=== PATIENT | male | born 1940 | race Caucasian/White ===

== ENCOUNTER 2017-05-19 09:34 | Inpatient (IN) | payer MEDICARE, BC ==
[~2017-05-19] VITALS: Ht 172.7 cm; Wt 110.7 kg
[~2017-05-19 09:34] MED LIST: ALLOPURINOL300 MG PO; AMLODIPINE BESYL5 MG PO; ANTIVERT25 MG PO; ASPIRIN EC81 MG PO; BUPROPION XL150 MG PO; CLINDAMYCIN HC300 MG PO; CLOPIDOGREL75 MG PO; GLIMEPIRIDE4 MG PO; KEFLEX500 MG PO; LASIX80 MG PO; LISINOPRIL40 MG PO; LOPRESSOR100 MG PO; METFORMIN HCL750 MG PO; METOPROLOL SUC100 MG PO; NITROSTAT0.4 MG SL; POTASSIUM CHLO20 ME1 PO; PRILOSEC OTC20 MG PO; SIMVASTATIN20 MG PO; SPIRONOLACTONE PO; WARFARIN; WARFARIN SODIUM5 MG PO
[2017-05-19] MEDS ORDERED: METOPROLOL TAR100 MG PO (17:42)
[2017-05-19] MEDS ORDERED: DILTIAZEM ER180 M1 PO (17:44)
[2017-05-19] MEDS ORDERED: JANUVIA100 MG PO (17:44)
[2017-05-19] MEDS ORDERED: LEVEMIR FL100 UNIT/2 SUB-Q (17:45)
[2017-05-19] MEDS ORDERED: KEFLEX500 MG PO (17:46)
[2017-05-19] MEDS ORDERED: METOLAZONE2.5 MG PO (17:47)
[2017-05-19] MEDS ORDERED: NIASPAN500 MG PO (17:47)
--- NOTE | 2017-05-19 19:32 | EKG ---
[facility] [address] [facility] [place] [address] Signed Atrial fibrillation Nonspecific ST and T wave abnormality Prolonged QT Abnormal ECG When compared with ECG of 30-JAN-2016 11:12, Previous ECG has undetermined rhythm, needs review ST now depressed in Anterior leads Nonspecific T wave abnormality now evident in Lateral leads QT has lengthened Confirmed by VAIBHAV VARGAS MD ([id number]) on 05/19/2017 7:32:06 PM Electronically Signed By: VAIBHAV VARGAS MD 05/19/[id number] PATIENT NAME: LUIS HANSEN Electrocardiogram DATE OF : 44 PHYSICIAN: VAIBHAV VARGAS MD REPORT #: [id number] REPORT IS CONFIDENTIAL AND NOT TO BE RELEASED WITHOUT AUTHORIZATION
[2017-05-21] MEDS ORDERED: AMOX TR-K CLV1 EAC1 PO (11:29)
[2017-05-21] MEDS ORDERED: PSEUDOEPHEDRINE30 MG PO (11:32)
[2017-05-21] MEDS ORDERED: POTASSIUM CHLO20 ME1 PO (11:33)
[2017-05-21] MEDS ORDERED: METOLAZONE2.5 MG PO (11:34)
[2017-05-21] MEDS ORDERED: LEVEMIR100 UNIT/1 SUB-Q (11:35)
[2017-05-21] MEDS ORDERED: FLUTICASONE PRO16 GM NAS (11:35)
[2017-05-21] MEDS ORDERED: SALINE NOSE SPR45 ML NAS (11:56)
== END 2017-05-21 13:35 | disposition home or self-care (01) | DRG 683 ==
LOC: ED 09:34 → CCU 12:25 → MS 05-20 10:45
PROVIDERS: ADMIT Internal Medicine
DX: N17.9 Acute kidney failure, unspecified (principal); I50.32 Chronic diastolic (congestive) heart failure; E86.0 Dehydration; E87.6 Hypokalemia; T50.2X5A Adverse effect of carbonic-anhydrase inhibitors, benzothiadiazides and other diuretics, initial encounter; J01.41 Acute recurrent pansinusitis; I11.0 Hypertensive heart disease with heart failure; I48.2 Chronic atrial fibrillation; E11.9 Type 2 diabetes mellitus without complications; I25.10 Atherosclerotic heart disease of native coronary artery without angina pectoris; E78.5 Hyperlipidemia, unspecified; E79.0 Hyperuricemia without signs of inflammatory arthritis and tophaceous disease; F39 Unspecified mood [affective] disorder; Z79.01 Long term (current) use of anticoagulants; Z98.61 Coronary angioplasty status; Z79.82 Long term (current) use of aspirin; Z79.4 Long term (current) use of insulin; Z79.899 Other long term (current) drug therapy
CPT/HCPCS: 36415; 71045; 80048; 80053; 81001; 82010; 82570; 83735; 84300; 84484; 84540; 85025; 85610; 85730; 93005; 93010; 94667; 94668; J3480; J7030; J7040; J7050; J7060; J7120

== ENCOUNTER 2018-05-27 12:33 | Emergency (ER) | payer MEDICARE, BC ==
[~2018-05-27] VITALS: Ht 172.7 cm; Wt 107.0 kg
[~2018-05-27 12:33] MED LIST changes: +AMOX TR-K CLV1 EAC1 PO; +DILTIAZEM ER180 M1 PO; +FLUTICASONE PRO16 GM NAS; +JANUVIA100 MG PO; +LEVEMIR FL100 UNIT/2 SUB-Q; +LEVEMIR100 UNIT/1 SUB-Q; +METOLAZONE2.5 MG PO; +METOPROLOL TAR100 MG PO; +NIASPAN500 MG PO; +PSEUDOEPHEDRINE30 MG PO; +SALINE NOSE SPR45 ML NAS; +TORSEMIDE20 MG PO
[2018-05-27] MEDS ORDERED: KEFLEX500 MG PO (13:12)
== END 2018-05-27 15:44 | disposition home or self-care (01) ==
LOC: ED 12:33
DX: L03.115 Cellulitis of right lower limb (principal); I10 Essential (primary) hypertension; E78.00 Pure hypercholesterolemia, unspecified; E11.9 Type 2 diabetes mellitus without complications; Z87.891 Personal history of nicotine dependence; Z95.5 Presence of coronary angioplasty implant and graft; Z79.899 Other long term (current) drug therapy; Z79.4 Long term (current) use of insulin; Z51.81 Encounter for therapeutic drug level monitoring
CPT/HCPCS: 80053; 85025; 85610; 93971; 96374; 99284-25; J0690

== ENCOUNTER 2018-08-31 16:56 | Observation (INO) | payer MEDICARE, BC ==
[~2018-08-31] VITALS: Ht 172.7 cm; Wt 111.0 kg
[~2018-08-31 16:56] MED LIST changes: +LANTUS SOL100 UNIT/1 SUB-Q
--- NOTE | 2018-08-31 19:20 | NUR ---
SHIFT REPORT RECIEVED FROM DAYSHIFT JULIOCESAR ORDONEZ AT [facility]. PT RECENTLY ARRIVED TO FLOOR VIA STRETCHER. INITIAL VVS. FAMILY IN ROOM. THIS RN INTRODUCED SELF TO PT AND FAMILY. FAMILY GOING HOMR FOR THE EVENING. PT AWAKE, RR WNL, NO DISTRESS NOTED. PT INTERACTING JOKINGLY WITH STAFF. ORDER PACKER COMPLETING QUICK ADMIT. CALL LIGHT IN REACH. IV BOLUS INFUSING AT THIS TIME.
--- NOTE | 2018-08-31 19:45 | NUR ---
PT ADMITTED TO ROOM 120 FROM ED, NEAR 192. A/O, PLEASANT. STATES HE LIVES IN [place], WITH HIS . ABLE TO AMBULATE, IS INSTRUCTED TO USE CALL LIGHT WHEN HE NEEDS TO GET UP D/T TO POTENTIAL FOR FALLING. HE STATED HE UNDERSTOOD. REQUESTED DINNER, WILL GET HIM A SANDWICH BOX, AFTER BLOOD SUGARS ARE DONE. CALL LIGHT EXPLAINED TO HIM HE STATED UNDERSTANDING.
--- NOTE | 2018-08-31 20:15 | NUR ---
[facility]'S HOME WARFARIN DOSE. PER HOME MED REC, PT TAKES 5MG WARFARIN DAILY AND PHARMACY IS ORDERED TO START DOSING ON 09/01/18.
--- NOTE | 2018-08-31 20:35 | NUR ---
PT BS 108, REQUIRES NO SLIDING SCALE, UP TO USE BATHROOM, STEADY ON FEET, THEN TO CHAIR PER HIS REQUEST. PLANNING TO EAT SANDWICH, AND WILL HAVE CUP COFFEE. CALL LIGHT WITH IN HIS REACH AT CHAIR.
--- NOTE | 2018-08-31 20:39 | NUR ---
VITALS DONE AND CHARTED.
--- NOTE | 2018-08-31 20:56 | NUR ---
ASSESSMENT COMPLETE. BS CHECKED BY CHARLOTTE AUGUST, BS WNL. NO INSULIN PROVIDED. SCHEDULED MEDICATIONS (SEE EMAR) GIVEN BY POSTAL TRANSPORTATION CLERK. LUNCHBOX IN ROOM AT THIS TIME. PT A/OX4, RATES PAIN 05/19. DENIES NEED FOR PAIN MEDICATIONS. VS REMAIN STABLE, TELE #[address], IRREGULAR HR NOTED. PT DENIES CHEST PAIN, SOB, OR DYSPNEA. PT ALSO DENIES DIZZINESS WITH STANDING OR AMBULATION. IV FLUIDS INFUSING PER MD ORDERS, SITE WNL. PT DENIES ADDITIONAL NEEDS, CALL LIGHT IN REACH.
--- NOTE | 2018-08-31 22:45 | NUR ---
ORTHOSTATIC VS COLLECTED AND RECORDED (SEE EMAR). DISCUSSED FINDINGS WITH SHIFT SUPERINTENDENT CAUSTIC CRESYLATE. STANDING SYSTOLIC FINDINGS BELOW 100. NO NEED TO NOTIFY VARGAS WITH RESULTS PER SHIFT SUPERINTENDENT CAUSTIC CRESYLATE. PT REMAINS ASYMPTOMATIC, DENIES SOB, DIZZINESS WITH STANDING, DYSPNEA. PT NOW RESTING IN BED, CALL LIGHT IN REACH. IV FLUIDS INFUSING PER MD ORDERS, SITE WNL. BED ALARM ON FOR SAFETY.
--- NOTE | 2018-09-01 01:04 | NUR ---
VITALS AND I&OS DONE AND CHARTED. BEDSIDE TABLE AND CALL LIGHT IN REACH. BED ALARM SET.
--- NOTE | 2018-09-01 05:18 | NUR ---
ASSESSMENT COMPLETE, NO NEW CONCERNS. VSS, PT ON RA, DENIES PAIN, SOB, DYSPNEA, AND NAUSEA. SBP 99, PT ASYMPTOMATIC AND RESTING AT THAT TIME. COLLECTED MANUALLY. BOAT GARNISHER AWARE, AGREES NOTIFYING DR VARGAS NOT NECESSARY. PT STABLE. PT SBA AND STOOD TO URINATE VIA URINAL. PT DENIES SOB, DIZZINESS, OR WEAKNESS AND STATES, "I CAN TELL YA I FEEL A LIKE MORE LIKE MYSELF THIS MORNING THAN I DID YESTERDAY". PT DENIES FURTHER NEEDS, CALL LIGHT IN REACH. BED ALRM ON FOR SAFETY. FRESH WATER AT BEDSIDE.
--- NOTE | 2018-09-01 05:21 | NUR ---
PT A/OX4, DENIES PAIN THIS SHIFT. VSS, PT ON ROOM AIR. TELE # 6, NSR, HR WNL. ORDERS FOR ORTHOSTATIC VS 2X/DAY. PT SBA. NS @125MLS/HR, IV SITE WNL. PT ON 60 G CARB DIET, 2100 BS WNL. NO INSULIN REQUIRED. BED ALARM ON FOR SAFETY.
--- NOTE | 2018-09-01 08:00 | NUR ---
CAME IN THIS MORNING TO SEE WHAT THE PATIENT WANTED TO ODER FOR BREAKFAST HE SAID HE NEEDED TO USE THE BATHROOM. ORDERED HIS BREAKFAST AND NOW SITTING UP IN HIS CHAIR. DID BLOOD SUGAR CHECK.
--- NOTE | 2018-09-01 08:02 | NUR ---
report received from charge nurse. pt up in chair. call light in reach. ns at 125 infusing. denies further needs.
--- NOTE | 2018-09-01 09:35 | NUR ---
IN TO SPEAK WITH PT AND . INITIAL CASE MANAGEMENT ASSESSMENT COMPLETE. PT DENIES ANY NEEDS AT HOME.
--- NOTE | 2018-09-01 10:00 | NUR ---
NS DECREASED TO 75ML/HR PER ORDER.
--- NOTE | 2018-09-01 10:27 | NUR ---
PT OUT TO AMBULATE 2 LAPS IN TURNER. DENIES SOB OR DIZZINESS. SBA WITH SENIOR HRIS ANALYST. TOLERATED WELL. BACK TO CHAIR. CALL LIGHT IN REACH
[2018-09-01] MEDS ORDERED: GABAPENTIN100 MG PO ×2 (10:52→11:31)
[2018-09-01] MEDS ORDERED: VICTOZA 2-0.6 MG/0.1 SUB-Q (10:55)
[2018-09-01] MEDS ORDERED: ONE TOUCH ULTR1 EACH MISC (11:12)
[2018-09-01] MEDS ORDERED: TORSEMIDE10 MG PO (11:15)
[2018-09-01] MEDS ORDERED: METOPROLOL TAR100 MG PO (11:31)
[2018-09-01] MEDS ORDERED: POTASSIUM CHLO20 ME1 PO (11:32)
[2018-09-01] MEDS ORDERED: COLCHICINE0.6 M1 PO (11:34)
[2018-09-01] MEDS ORDERED: SPIRONOLACTONE25 MG PO (11:34)
--- NOTE | 2018-09-01 11:43 | NUR ---
ROUNDED WITH DR VARGAS. PLAN FOR DISCHARGE DISCUSSED. QUESTIONS AND CONCERNS ADRESSED.
--- NOTE | 2018-09-01 12:02 | NUR ---
MED REC COMPLETE
[2018-09-01] MEDS ORDERED: HUMALOG100 UNITS/ SUB-Q (12:25)
--- NOTE | 2018-09-01 13:03 | EKG ---
[facility] [address] [facility] [place] [address] Signed Atrial fibrillation Prolonged QT Abnormal ECG When compared with ECG of 19-MAY-2017 09:50, ST no longer depressed in Anterior leads Nonspecific T wave abnormality no longer evident in Lateral leads QT has shortened Confirmed by VAIBHAV VARGAS MD ([id number]) on 09/01/2018 1:03:42 PM Electronically Signed By: VAIBHAV VARGAS MD 09/01/18 1303 PATIENT NAME: LUIS HANSEN Electrocardiogram DATE OF : 44 PHYSICIAN: VAIBHAV VARGAS MD REPORT #: [id number] REPORT IS CONFIDENTIAL AND NOT TO BE RELEASED WITHOUT AUTHORIZATION
== END 2018-09-01 12:20 | disposition home or self-care (01) ==
LOC: ED 16:56 → MS 16:57
PROVIDERS: ADMIT Internal Medicine
DX: N17.9 Acute kidney failure, unspecified (principal); I25.10 Atherosclerotic heart disease of native coronary artery without angina pectoris; Z95.5 Presence of coronary angioplasty implant and graft; I48.2 Chronic atrial fibrillation; E78.5 Hyperlipidemia, unspecified; E79.0 Hyperuricemia without signs of inflammatory arthritis and tophaceous disease; F39 Unspecified mood [affective] disorder; I50.32 Chronic diastolic (congestive) heart failure; E11.22 Type 2 diabetes mellitus with diabetic chronic kidney disease; N18.3 Chronic kidney disease, stage 3 (moderate); Z87.891 Personal history of nicotine dependence; Z79.01 Long term (current) use of anticoagulants; Z79.82 Long term (current) use of aspirin; Z79.4 Long term (current) use of insulin; Z79.51 Long term (current) use of inhaled steroids; Z79.899 Other long term (current) drug therapy
CPT/HCPCS: 36415; 71045; 80048; 80053; 81001; 83735; 83880; 84484; 85025; 85610; 93005; 93010; 99285-25; G0378; J7030; J7040

== ENCOUNTER 2019-04-30 09:48 | Emergency (ER) | payer MEDICARE, BC ==
[~2019-04-30] VITALS: Ht 172.7 cm; Wt 111.0 kg
[~2019-04-30 09:48] MED LIST changes: +COLCHICINE0.6 M1 PO; +GABAPENTIN100 MG PO; +HUMALOG100 UNITS/ SUB-Q; +ONE TOUCH ULTR1 EACH MISC; +SPIRONOLACTONE25 MG PO; +TORSEMIDE10 MG PO; +VICTOZA 2-0.6 MG/0.1 SUB-Q
[2019-04-30] MEDS ORDERED: BACTRIM DS TAB1 EACH PO (10:19)
[2019-04-30] MEDS ORDERED: KEFLEX500 MG PO (10:19)
== END 2019-04-30 11:30 | disposition home or self-care (01) ==
LOC: ED 09:48
DX: S81.802A Unspecified open wound, left lower leg, initial encounter (principal); L08.9 Local infection of the skin and subcutaneous tissue, unspecified; W22.8XXA Striking against or struck by other objects, initial encounter; I10 Essential (primary) hypertension; E11.9 Type 2 diabetes mellitus without complications; Z87.891 Personal history of nicotine dependence; Z79.899 Other long term (current) drug therapy; Z79.4 Long term (current) use of insulin; Z79.01 Long term (current) use of anticoagulants
CPT/HCPCS: 99283; A9270

== ENCOUNTER 2019-06-23 16:46 | Inpatient (IN) | payer MEDICARE, BC ==
[~2019-06-23] VITALS: Ht 172.7 cm; Wt 113.8 kg
[~2019-06-23 16:46] MED LIST changes: +BACTRIM DS TAB1 EACH PO
--- OUTSIDE RECORDS SUMMARY | 2019-06-23 16:48 | XMS ---
PreManage Notification: LUIS HANSEN Security Interventional Nurse Events No recent Security Events currently on file CRITERIA MET - [facility] - 2 Visits in 30 Days CARE PROVIDERS DOCTOR SABA Primary Care Current PHONE: Unknown Paco Curran MD Primary Care Current PHONE: Unknown orrobert Case or Tire Manager Current PHONE: Unknown Jacky has no Care Guidelines for this patient. ECarri VISIT COUNT (12 MO.) 2 [facility] 3 [facility] TOTAL 5 NOTE: Visits indicate total known visits. ED/UCC VISIT TRACKING (12 MO.) 06/23/2019 16:47 [facility] [place] TYPE: Emergency COMPLAINT: - FEVER, L LEG CUT 06/15/2019 09:01 [facility] [place] TYPE: Emergency DIAGNOSES: - NEEDS NOSE PLUG PULLED - Encounter for change or removal of nonsurg wound dressing 06/14/2019 15:11 [facility] [place] TYPE: Emergency DIAGNOSES: - Epistaxis - EPISTAXIS ON BLOOD THINNERS 04/30/2019 09:49 [facility] [place] TYPE: Emergency COMPLAINT: - LEFT LEG INJURY DIAGNOSES: - terminal carman (current) use of insulin - detention (current) use of anticoagulants - Personal history of nicotine dependence - Unspecified open wound, left lower leg, initial encounter - Essential (primary) hypertension - Unspecified open wound, left lower leg, initial encounter - 1 Type 2 diabetes mellitus without complications - Other extermination inspector (current) drug therapy - Local infection of the skin and subcutaneous tissue, unsp - Striking against or struck by other objects, init encntr 08/31/2018 16:56 [facility] [place] TYPE: Emergency COMPLAINT: - WEAKNESS/DIZZINESS INPATIENT VISIT TRACKING (12 MO.) 08/31/2018 16:[address] [facility] [place] TYPE: Observation COMPLAINT: - ACUTE KIDNEY INJURY DIAGNOSES: - terminal carman (current) use of aspirin - Other half-way (current) drug therapy - Chronic diastolic (congestive) heart failure - Dizziness and giddiness - detention (current) use of insulin - 1 Type 2 diabetes mellitus w diabetic chronic kidney disease - Chronic atrial fibrillation - Unspecified mood [affective] disorder - terminal carman (current) use of inhaled steroids - Athscl heart disease of [place] coronary artery w/o ang pctrs - Acute kidney failure, unspecified - Hyperuricemia w/o signs of inflam arthrit and tophaceous dis - terminal carman (current) use of anticoagulants - Personal history of nicotine dependence - Hyperlipidemia, unspecified - Presence of coronary angioplasty implant and graft - 1 Chronic kidney disease, stage 3 (moderate) [email or web address]
--- NOTE | 2019-06-23 19:45 | NUR ---
PATIENT ARRIVED VIA STRETCHER. AT BEDSIDE. PATIENT ABLE TO MOVE INDEPENDENTLY TO BED VIA STAND AND PIVOT. SITS AT EDGE OF BED TO REST. LUNGS ARE CLEAR. TOLERATING ROOM AIR. NO GI UPSET. ABD ROUND AND FIRM. 2+ EDEMA NOTED IN MEL LOWER EXTREMITIES. WOUND ON LEFT KERN IS SCABBED OVER WITHOUT DRAINAGE. OPEN TO AIR. PICTURES IN CHART. WOUND ON RIGHT FOOD COVERED WITH PADDING DRESSING FROM 'S. LEFT THIS IN PLACE. VANCO INFUSING PER ORDERS, SITE WNL.
--- NOTE | 2019-06-23 20:51 | NUR ---
SECOND IV SITE STARTED. IV FLUIDS AT 500 ML/HR INFUSING. IV ABX FINISHED. PATIENT PROVIDED WITH SANDWICH BOX THAT HE HAS JUST FINISHED. WILL WAIT FOR ACCU CHECK AND SSI. BP HAVE BEEN AROUND 95 SYSTOLIC WITH MAPS IN 60'S. HR 95-100. LOPRESSOR HELD AT THIS TIME. WILL CONTINUE TO MONITOR. PATIENT DENIES ANY PAIN OR CONCERNS. DUE TO VOID, DENIES NEED.
--- NOTE | 2019-06-23 21:15 | NUR ---
PATIENT'S LEFT KERN WOUND CLEANED AND DRESSED PER WOUND CARE ORDERS. PATIENT TOLERATED WELL. DENIES NEEDS TO VOID AT THIS TIME. BLOOD GLUCOSE ELEVATED 188, INSULIN ADMINISTERED PER SLIDING SCALE.
--- NOTE | 2019-06-23 21:58 | NUR ---
NOTIFIED OF OF MAG LAB RESULTS.
--- NOTE | 2019-06-24 00:30 | NUR ---
PATIENT RESTING IN BED. REPORTS SLEEPING OFF AND ON. ASSISTED PATIENT TO REPOSITION. IV FLUIDS PER ORDER, SITE WNL. AFEBRILE. PATIENT DENIES ANY CONCERNS OR NEEDS. CALL LIGHT IN REACH.
--- NOTE | 2019-06-24 02:06 | NUR ---
pt stood at bedside and voided. luke activity well. assisted back to bed. call light in reach. denies needs.
--- NOTE | 2019-06-24 03:21 | NUR ---
PATIENT REPORTS TROUBLE GETTING COMFORTABLE IN BED. ASSISTED TO LIMIT TANGLING OF LINES FROM MONITOR AND IV. PATIENT ABLE TO TURN IN BED. DENIES NEED FOR SECOND PILLOW OR WARM BLANKET. AFEBRILE. VS STABLE. IV FLUIDS PER ORDER, SITE WNL. DRESSING ON LEFT KERN IS CLEAN VIJAY AND INTACT.
--- NOTE | 2019-06-24 05:30 | NUR ---
PATIENT UP TO STAND AT BEDSIDE. APPEARS STEADY ON HIS FEET. VOIDED IN URNAL. REPORTS FEELING LESS WEAK THIS MORNING. DRESSING ON LEFT KERN IS C/D/I. ABLE TO EASILY PLACE 3 FINGERS UNDER DRESSING. PATIENT REPORTS PAIN HAS IMPROVED IN THIS LEG AFTER HAVING IT ELEVATED OVERNIGHT. CONTINUES TO HAVE 2+ EDEMA IN MEL LOWER EXTREMITITES. PATIENT DENIES ANY CONCERNS THIS MORNING. DIET CLEAR SODA PROVIDED PER REQUEST. IV FLUIDS PER ORDER, SITE WNL. CONTINUES TO BE AFEBRILE. LAB IN FOR MORNING DRAW.
--- NOTE | 2019-06-24 06:15 | NUR ---
NOTE FOR VITAL SIGNS PATIENT SLEPT MOST OF THE NIGHT AND REST WITH BOTH ARMS UP ABOVE HIS HEAD WITH HOB ELEVATED. BP WITH AVERAGE OF 100 SYSTOLIC ARE FROM ARM IN THIS POSITION. SYSTOLIC BP IN 120'S WHEN RN IN ROOM AND REMINDS PATIENT TO LEAVE ARM AT HIS SIDE AND NOT MOVE DURING ASSESSMENT.
--- NOTE | 2019-06-24 08:41 | NUR ---
PT ALERT AND ORIENTED X4, DENIES PAIN, NAUSEA, SOB. PT IS SITTING UP IN BED EATING BREAKFAST, IS AT THE BEDSIDE. VITALS ARE WNL. PT WASHED FACE AND HANDS WITH WARM WASH CLOTH.
--- NOTE | 2019-06-24 12:06 | NUR ---
PT ABLE TO AMBULATE TO ROOM 126 TO SHOWER, ABLE TO SHOWER INDEPENDENTLY. EDUCATED PUBLIC HEALTH ADMINISTRATOR LIGHT IN SHOWER IF NEEDED. PT ABMULATED BACK TO ROOM 127 AFTER SHOWER, VINITA ACTIVITY WELL. DRESSING ON LEFT LEG CHANGED, WOUND WASH APPLIED, THEN ABD PAD AND KURLEX. PT VINITA DRESSING CHANGE WELL. VITALS WNL AT THIS TIME. PT LAYING IN BED WATCHING TV, CALL LIGHT IS WITHIN REACH. PT DENIES PAIN, NAUSEA, AND SOB.
--- NOTE | 2019-06-24 15:27 | NUR ---
PT ARRIVED TO MED-SURG AT 1525 AND HE WAS ORIENTED TO THE ROOM. CALL ORTIZ WITHIN REACH AND VITAL SIGNS ARE STABLE.
--- NOTE | 2019-06-24 16:34 | NUR ---
PT VISITING WITH HIS AND HE DENIES ANY NEW PROBLEMS.
--- NOTE | 2019-06-24 20:20 | NUR ---
PT UP IN CHAIR, WATCHING TV, ON CONTACT ISOLATION. ROOM AIR, TOLERATING DIET WELL, NO C/O PAIN OR N/V. 2 SL PATENT. L LE DRESSING INTACT. LEGS ELEVATED. FRESH WATER NAD CALL LIGHT AT BEDSIDE.
--- NOTE | 2019-06-25 00:04 | NUR ---
In bed, resting, on room air, no resp distress, no c/o pain. Dressing L LE intact. elevated in pillows. call light and fluids at bedside, no c/o adverser eaction to insulin/ hypo/hyperglycemic episodes. Continues on Contact Precautions.
--- NOTE | 2019-06-25 02:07 | NUR ---
resting, no distress, eyes closed, no resp distress, call light at bedside, on contact precautions
--- NOTE | 2019-06-25 03:33 | NUR ---
RESTING, EYES CLOSED, NO RESP DISTRESS, CALL LIGHT AT BEDSIDE, CONTINUES ON CONTACT PRECAUTIONS,
--- NOTE | 2019-06-25 04:56 | NUR ---
Pt Continues on Contact Isolation. COoperative, alert, independent in room. Tolerating diabetic diet, CBG 170, reveived 1 unit SS Humalog and 50 units Lantus. L LE dressing intact. decreased redness/cellulitis of both legs noted, elevated. 2SL patent. No c/o pain. call light at hands reach.
--- NOTE | 2019-06-25 05:52 | NUR ---
Up to br from bed, voided QS urine. cup of coffee given on requests and fresh water given. Back to chair, no c/o pain. Dressing LLE in place, encourage to elevated legs ehen up in chair. staed understanding, did own oral care. No c/o n/v, call light at hands reach
--- NOTE | 2019-06-25 07:21 | NUR ---
0718: Report recieved from Deanna GANDARA. Pt sitting up in his chair and is on the phone at this time. Call figueroa and personal items within reach.
--- NOTE | 2019-06-25 08:26 | NUR ---
PT SITTING IN HIS CHAIR EATING BREAKFAST WITH NO COMPLAINTS. VSS AND CALL ORTIZ WITHIN REACH. LEFT LOWER LEG DRESSING IS CDI. SEE ASSESSMENT.
--- NOTE | 2019-06-25 10:47 | NUR ---
DISCHARGE INSTRUCTIONS GIVEN TO THE PT AND HIS SON (PAT) WITH GOOD UNDERSTANDING STATED. THE PT WAS GIVEN A COPY OF HIS INSTRUCTIONS AND THE FAMILY WAS ALSO GIVEN A SET OF THEM. QUESTIONS ANSWERED AND THEY ARE AWARE OF WHAT MEDICATIONS ARE ORDERED AND WHICH ONES WERE GIVEN ALREADY TODAY. PT STATES HE HAS ALL OF HIS BELONGINGS AND HIS VITAL SIGNS ARE STABLE. THE PT HAD NO IV TO DC.
--- NOTE | 2019-06-25 12:16 | NUR ---
Pt visiting with his at this time and he has no new complaints. CBG 185 which was treated and he now is having his lunch.
--- NOTE | 2019-06-25 13:48 | NUR ---
PT RESTING IN HIS CHAIR WITH HIS LEGS ELEVATED. HE DENIES ANY PAIN OR PROBLEMS OTHER THAN FEELING "A LITTLE WEAK". SEE ASSESSMENT.
--- NOTE | 2019-06-25 14:04 | NUR ---
PT'S LEFT LOWER LEG DRESSING CHANGED ORDERED. LUIS TOLERATED IT WELL AND HE STATES "IT LOOKS A LOT BETTER". THE WOUND MEASURES 9 X 3.5 CM WITH SCABBING ON THE WOUND EDGE AND THE WOUND BED BEING DARK RED IN COLOR. THERE IS A MODERATE AMOUNT OLD DRAINAGE TO THE REMOVED DRESSING WHICH IS YELLOW IN COLOR. LEGS REMAIN ELEVATED AT THIS TIME.
--- NOTE | 2019-06-25 16:34 | NUR ---
Pt resting in his chair without any complaints at this time.
--- NOTE | 2019-06-25 16:45 | NUR ---
Pt resting in his chair and is watching tv and states he is doing well and has no complaints at this time.
--- NOTE | 2019-06-25 18:40 | NUR ---
PATIENT IN CHAIR WATCHING TV. IN ROOM. FRESH WATER GIVEN. CALL LIGHT IN REACH. NO FURTHER NEEDS AT THIS TIME.
--- NOTE | 2019-06-25 21:53 | NUR ---
UP IN CHAIR, WATCHING TV, LEGS ELEVATED, DRESSING L LEG REDRESSED, COBAN REMOVED AND REPLACED BY PUJA WRAP PT THOUGHT IT WAS PUTTING TOO MUCH PRESSURE IN HER LEG. LEG ELEVATED. DRY, SCALY SKIN NOTED. COMPLIANT WITH ASSESSMENT, CBG 176, RECEIVED 3 UNITS SS INSULIN, NO C/O PAIN. TOLERATING DIET,. pT CONTINUOES ON CONTACT ISOLATION. IN ROOM
--- NOTE | 2019-06-26 01:13 | NUR ---
continues on contact isolation precautions, In bed, on room air, resting, turns self in bed, no resp distress, call light at bedside
--- NOTE | 2019-06-26 02:29 | NUR ---
RESTING, EYES CLOSED, NO RESP DISTRESS, TURNS SELF IN BED, CONTINUES ON CONTACT ISOLATION, CALL LIGHT AT HANDS REACH
--- NOTE | 2019-06-26 06:31 | NUR ---
PT CONTINUOUS ON CONTACT ISOLATION PRECAUTIONS. L LE WOUND. DRESSING INTACT. COBAN REMOVED EARLIER THIS SHIFT AT PTS REQUESTS AND REPLACED WITH PUJA WRAP "iT WAS TOO TIGHT' STAED, EDEMATOUS LEGS, ELEVATED W PILLOWS. COOP WITH ASSESSMENTS, ON ROOM AIR, INDEPENDENT IN ROOM, NO C/O PAIN, NO C/O N/V
--- NOTE | 2019-06-26 07:24 | NUR ---
PT ALERT AND INTERACTIVE DURING BEDSIDE REPORT. UP INDEPENDANTLY IN THE ROOM DOING A.M. CARES. PT DENIES PAIN, DISCOMFORT, OR NEEDS OF.
[2019-06-26] MEDS ORDERED: TORSEMIDE100 MG PO ×3 (09:07→09:56)
--- NOTE | 2019-06-26 09:45 | NUR ---
PT UP AND AROUND ROOM INDEPENDANTLY APPEARS STEADY ON HIS FEET DENIES NEED OF ASSIST. REMINDED PT TO ELEVATE HIS FEET WHEN SITTING, HE CONTINUES TO HAVE THEM DOWN EACH TIME THIS HELPDESK MANAGER ENTERS THE ROOM
[2019-06-26] MEDS ORDERED: DOXYCYCLINE HY100 MG PO (09:55)
[2019-06-26] MEDS ORDERED: POTASSIUM CHLO20 ME1 PO (09:56)
[2019-06-26] MEDS ORDERED: ASPIR 8181 MG PO (10:25)
[2019-06-26] MEDS ORDERED: METOLAZONE2.5 MG PO (10:26)
--- NOTE | 2019-06-26 10:27 | NUR ---
MED REC COMPLETE
--- NOTE | 2019-06-26 11:09 | NUR ---
DRESSING CHANGED PER ORDERS TO LLE PRIOR TO DC PT REPORTS HE WILL SEE DR DESAI TOMORROW
--- NOTE | 2019-06-26 11:20 | NUR ---
In and spoke with pt. Dr. Horta arrives and instructions given to pt. for discharge. Pt lives in [place] with his , they both drive. He denies needs, use cpap, but 0 other DME. Plans on dc to home today and will call .
== END 2019-06-26 10:50 | disposition home or self-care (01) | DRG 872 ==
LOC: ED 16:46 → CCU 18:49 → MS 06-24 15:27
PROVIDERS: ADMIT Internal Medicine
DX: A41.02 Sepsis due to Methicillin resistant Staphylococcus aureus (principal); L03.116 Cellulitis of left lower limb; L03.115 Cellulitis of right lower limb; I13.0 Hypertensive heart and chronic kidney disease with heart failure and stage 1 through stage 4 chronic kidney disease, or unspecified chronic kidney disease; I50.32 Chronic diastolic (congestive) heart failure; I48.20 Chronic atrial fibrillation, unspecified; E79.0 Hyperuricemia without signs of inflammatory arthritis and tophaceous disease; F39 Unspecified mood [affective] disorder; I25.10 Atherosclerotic heart disease of native coronary artery without angina pectoris; N18.3 Chronic kidney disease, stage 3 (moderate); E11.22 Type 2 diabetes mellitus with diabetic chronic kidney disease; G47.33 Obstructive sleep apnea (adult) (pediatric); E78.5 Hyperlipidemia, unspecified; Z79.01 Long term (current) use of anticoagulants; Z79.899 Other long term (current) drug therapy; Z79.4 Long term (current) use of insulin
CPT/HCPCS: 36415; 80048; 80053; 81001; 83605; 83735; 85025; 85610; 96361; 96374; 99285-25; J0696; J1815; J3370; J3475; J7030; J7040; J7060; J7121

== ENCOUNTER 2019-09-26 19:45 | Emergency (ER) | payer MEDICARE, BC ==
[~2019-09-26] VITALS: Ht 172.7 cm; Wt 113.9 kg
[~2019-09-26 19:45] MED LIST changes: +ASPIR 8181 MG PO; +DOXYCYCLINE HY100 MG PO; +TORSEMIDE100 MG PO
--- OUTSIDE RECORDS SUMMARY | 2019-09-26 19:48 | XMS ---
PreManage Notification: LUIS HANSEN Security Respiratory Therapy Technician Events No recent Security Events currently on file CRITERIA MET - 6 ED Visits in 6 Months - [facility] - Has Care Guidelines - History of Sepsis Dx CARE PROVIDERS VAIBHAV VARGAS Internal Medicine 06/26/2019-Current PHONE: [phone] Jacky has no Care Guidelines for this patient. Care History Medical/Surgical 06/26/2019 [facility] - Patient is currently established with [facility]. If patient is seen in the ED during business hours. Please contact CHWs at [facility]. Care Recommendation: If this patient has had 5 or more Emergency Department visits in the last 12 months.\T\nbsp; Patient will require education on the scope and purpose of the ED as an acute care provider not a Primary Care Provider and should not be utilized for chronic conditions.\T\nbsp; These are guidelines and the provider should exercise clinical judgment when providing care. 06/26/2019 [facility] Patient admitted.\T\nbsp; Follow up scheduled 07/01/[address] Johnson Longoria VISIT COUNT (12 MO.) 4 [facility] 3 [facility] TOTAL 7 NOTE: Visits indicate total known visits. ED/UCC VISIT TRACKING (12 MO.) 09/26/2019 19:45 [facility] [place] [place] TYPE: Emergency COMPLAINT: - FEVER 08/15/2019 15:06 [facility] [place] TYPE: Emergency DIAGNOSES: - Epistaxis - NOSE BLEED 08/14/2019 16:03 [facility] [place] TYPE: Emergency DIAGNOSES: - Epistaxis - NOSE BLEED 06/23/2019 16:47 [facility] [place] TYPE: Emergency COMPLAINT: - FEVER, L LEG CUT 06/15/2019 09:01 [facility] [place] TYPE: Emergency DIAGNOSES: - NEEDS NOSE PLUG PULLED - Encounter for change or removal of nonsurgical wound dressing 06/14/2019 15:11 [facility] [place] TYPE: Emergency DIAGNOSES: - Epistaxis - EPISTAXIS ON BLOOD THINNERS 04/30/2019 09:49 [facility] [place] TYPE: Emergency COMPLAINT: - LEFT LEG INJURY DIAGNOSES: - termite treater helper (current) use of insulin - termite treater helper (current) use of anticoagulants - Personal history of nicotine dependence - Unspecified open wound, left lower leg, initial encounter - Essential (primary) hypertension - Unspecified open wound, left lower leg, initial encounter - Type 2 diabetes mellitus without complications - Other snf (current) drug therapy - Local infection of the skin and subcutaneous tissue, unspecif - Striking against or struck by other objects, initial encounte INPATIENT VISIT TRACKING (12 MO.) 06/23/2019 18:49 [facility] [place] TYPE: Medical Surgical COMPLAINT: - SEPSIS/CELLULITIS DIAGNOSES: - Obstructive sleep apnea (adult) (pediatric) - Atherosclerotic heart disease of [place] coronary artery witho - custodial (current) use of anticoagulants - Sepsis due to Methicillin resistant Staphylococcus aureus - Hypertensive heart and chronic kidney disease with heart fail - Obstructive sleep apnea (adult) (pediatric) - Hyperuricemia without signs of inflammatory arthritis and top - Type 2 diabetes mellitus with diabetic chronic kidney disease - termite treater helper (current) use of insulin - Hyperlipidemia, unspecified - Cellulitis of left lower limb - Unspecified mood [affective] disorder - Unspecified mood [affective] disorder - Cellulitis of right lower limb - Other remote computer terminal operator (current) drug therapy - Cellulitis of left lower limb - termite treater helper (current) use of anticoagulants - Atherosclerotic heart disease of [place] coronary artery witho - Chronic kidney disease, stage 3 (moderate) - termite treater helper (current) use of insulin - Chronic atrial fibrillation, unspecified - Hyperlipidemia, unspecified - Sepsis due to Methicillin resistant Staphylococcus aureus - Other remote computer terminal operator (current) drug therapy - Type 2 diabetes mellitus with diabetic chronic kidney disease - Cellulitis of right lower limb - Chronic diastolic (congestive) heart failure - Hypertensive heart and chronic kidney disease with heart fail - Chronic atrial fibrillation, unspecified - Sepsis, unspecified organism - Chronic kidney disease, stage 3 (moderate) - Chronic diastolic (congestive) heart failure - Hyperuricemia without signs of inflammatory arthritis and top [email or web address]
[2019-09-26] MEDS ORDERED: KEFLEX500 MG PO (23:55)
[2019-09-26] MEDS ORDERED: BACTRIM DS TAB1 EACH PO (23:55)
== END 2019-09-27 00:04 | disposition home or self-care (01) ==
LOC: ED 19:45
DX: L03.115 Cellulitis of right lower limb (principal); I10 Essential (primary) hypertension; E78.00 Pure hypercholesterolemia, unspecified; E11.9 Type 2 diabetes mellitus without complications; Z87.891 Personal history of nicotine dependence; Z79.899 Other long term (current) drug therapy; Z79.4 Long term (current) use of insulin
CPT/HCPCS: 71045; 80053; 81001; 83605; 85025; 85610; 85730; 99284-25; U0002

== ENCOUNTER 2021-11-28 06:00 | Day surgery (SDC) | payer MEDICARE, BC ==
[~2021-11-28] VITALS: Ht 172.7 cm; Wt 101.4 kg
--- NOTE | 2021-11-28 08:20 | NUR ---
11/28/21 0820 Michaela Bernal 0812-PATIENT ARRIVED TO PACU ON 6L MASK NONAROUSABLE RR EVEN ORAL. LAYING LEFT LATERAL IVF INFUSING. AFIB. GLUCOSE CHECKED 86
--- NOTE | 2021-11-28 12:04 | OR ---
[facility] [address] [place], [place] [address] Signed DATE OF OPERATION: 11/28/2021 SURGEON: Landry Conley MD PREOPERATIVE DIAGNOSES: 1. Pandiverticulosis. 2. Personal history of colonic polyps. 3. Quinn's procedure with side-to-end colorectal anastomosis at 27 cm. POSTOPERATIVE DIAGNOSES: 1. 7 mm polyp at 40 cm (snare). 2. 4 mm polyp at 110 cm. 3. 4 mm polyp at 95 cm. 4. 4 mm polyp at 50 cm. 5. 4 mm polyp at 12 cm. 6. Moderate pandiverticulosis. 7. Moderate external hemorrhoids. 8. Chang side-to-end colorectal anastomosis at 27 cm. PROCEDURE: Colonoscopy with snare polypectomy and hot biopsy. ESTIMATED BLOOD LOSS: None. INDICATIONS: Luis is a 81-year-old obese diabetic gentleman I have known for many years. He came initially with ruptured diverticulitis in 2009. This required a Quinn's procedure. We reversed the Quinn's procedure about a year later. He is known to have pandiverticulosis. Also, he has had hyperplastic and adenomatous polyps removed. His anastomosis is up a little high around at 27 cm. He comes every five years for followup colonoscopy. His last colonoscopy was in 2016. We have come through the COVID pandemic and he is returning now for a followup colonoscopy. In the meantime, he does have sleep apnea and requires his CPAP mask. He also has to use a cane to ambulate once in a while when his hip is bothering him. Overall, his functional status has declined, but he still maintains good muscle mass. 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 He is in atrial fibrillation chronically and has heart failure with a preserved left ventricular ejection fraction. Consequently, he is a candidate for monitored anesthesia care with propofol infusion. In the office, I did give him a pamphlet on colonoscopy and we reviewed the nature of the test. He understands there is risk including, but not Electronically Signed By: ALNDRY CONLEY MD 11/28/21 1204 PATIENT NAME: LUIS HANSEN OPERATIVE REPORT DATE OF : 44 REPORT #: [id number] PHYSICIAN: LANDRY CONLEY MD PCP: VAIBHAV VARGAS MD REPORT IS CONFIDENTIAL AND NOT TO BE RELEASED WITHOUT AUTHORIZATION [facility] [address] [place] [id number] Signed limited to gas bloating, crampy abdominal pain, bleeding, perforation requiring surgery, and missed diagnosis. He had expressed understanding and wished to proceed. PROCEDURE NOTE: Luis was taken into our endoscopy suite and placed in the left lateral decubitus position. He was given monitored anesthesia care with propofol per our nurse direct chill caster. A digital rectal exam was performed and he does have moderate circumferential external hemorrhoids. He had good sphincter tone. His prostate gland is indurated. The adult colonoscope was introduced and advanced under direct visualization of the camera. It took some extra sedation and abdominal compression in order to get the scope directly into the cecum itself. Fortunately, his prep is always good. We could easily see the appendiceal orifice and the ileocecal valve. The scope was then slowly withdrawn. We took pictures throughout for photodocumentation. We used hot biopsy forceps to remove the polyps as listed above. We used the snare at 40 cm. There was just a little bleeding, so we touched it with hot biopsy forceps and that worked out quite nicely. In reality that polypectomy site is just above the anastomosis. We did note that he has the moderate-sized pandiverticulosis. They are moderate in size, few to moderate in number, and scattered about. Upon retroflexion of the scope, there was no additional pathology noted above the anal canal. After this, the gas was suctioned out and the colonoscope removed. Luis tolerated the procedure quite well. RECOMMENDATIONS: I will see Luis back in my office in 7 to 14 days to review his results. He will resume the Coumadin and the aspirin in one week. Otherwise, he will resume his other medications today. Landry Conley MD [facility]/MODL /[id number] cc: MD Landry Guerrier MD Electronically Signed By: LANDRY CONLEY MD 11/28/21 1204 PATIENT NAME: LUIS HANSEN OPERATIVE REPORT DATE OF : 44 REPORT #: [id number] PHYSICIAN: LANDRY CONLEY MD PCP: VAIBHAV VARGAS MD REPORT IS CONFIDENTIAL AND NOT TO BE RELEASED WITHOUT AUTHORIZATION [address] [address] Signed Copies: VAIBHAV VARGAS MD, ANDREW L MD ~ Electronically Signed By: LANDRY CONLEY MD 11/28/21 1204 PATIENT NAME: LUIS HANSEN OPERATIVE REPORT DATE OF : 44 REPORT #: [id number] PHYSICIAN: LANDRY CONLEY MD PCP: VAIBHAV VARGAS MD REPORT IS CONFIDENTIAL AND NOT TO BE RELEASED WITHOUT AUTHORIZATION
--- NOTE | 2021-12-02 14:13 | PATH ---
[facility] [address] [facility] [place], [place] [address] Signed SPECIMEN(S): A COLON POLYP AT 40 CM SPECIMEN(S): B COLON POLYP AT 110 CM SPECIMEN(S): C COLON POLYP AT 95 CM SPECIMEN(S): D COLON POLYP AT 50 CM SPECIMEN(S): E COLON POLYP AT 12 CM SPECIMEN SOURCE: A. COLON POLYP AT 40 CM B. COLON POLYP AT 110 CM C. COLON POLYP AT 95 CM D. COLON POLYP AT 50 CM E. COLON POLYP AT 12 CM CLINICAL HISTORY: History of polyps; diverticulitis; sigmoid resection. Postop diagnosis: Diverticulosis, polyps, external hemorrhoids FINAL PATHOLOGIC DIAGNOSIS: A. Colon polyp at 40 cm: - Tubular adenoma (two fragments). B. Colon polyp at 110 cm: - Tubular adenoma (one fragment). C. Colon polyp at 95 cm: - Polypoid fragment of benign colonic mucosa, negative for dysplasia. D. Colon polyp at 50 cm: - Polypoid fragment of benign colonic mucosa with slight hyperplastic features (one fragment). E. Colon polyp at 12 cm: - Hyperplastic polyp (one fragment). [id number] MICROSCOPIC EXAMINATION: Histologic sections of all submitted blocks are examined by light microscopy. These findings, together with the gross examination, support the pathologic diagnosis. GROSS DESCRIPTION: Five specimens are received in five containers, labeled "Luis Sanchez." A. The specimen, labeled " Luis Sanchez, #1," and designated on the requisition "colon polyp at 40 cm," is received in formalin and consists of one amezcua soft tissue fragment that measures 0.6 cm in PATIENT NAME: LUIS SANCHEZ PATHOLOGY DATE OF : 44 REPORT #: [id number] PHYSICIAN: MANOJ MCCRARY PCP: VAIBHAV VARGAS MD REPORT IS CONFIDENTIAL AND NOT TO BE RELEASED WITHOUT AUTHORIZATION [facility] [address] [place], [place] [address] Signed greatest dimension. The specimen is inked, bisected, and entirely submitted in cassette (A1). B. The specimen, labeled " Luis Sanchez, #2," and designated on the requisition "colon polyp at 110 cm," is received in formalin and consists of one amezcua soft tissue fragment that measures 0.4 cm in greatest dimension. The specimen is entirely submitted in cassette (B1). C. The specimen, labeled " Luis Sanchez, #3," and designated on the requisition "colon polyp at 95 cm," is received in formalin and consists of one amezcua soft tissue fragment that measures 0.4 cm in greatest dimension. The specimen is entirely submitted in cassette (C1). D. The specimen, labeled " Luis Sanchez, #4," and designated on the requisition "colon polyp at 50 cm," is received in formalin and consists of one amezcua soft tissue fragment that measures 0.4 cm in greatest dimension. The specimen is entirely submitted in cassette (D1). E. The specimen, labeled " Luis Sanchez, #5," and designated on the requisition "colon polyp at 12 cm," is received in formalin and consists of one amezcua soft tissue fragment that measures 0.3 cm in greatest dimension. The specimen is entirely submitted in cassette (E1). FB (under the direct supervision of a pathologist) The Gross Description was prepared using a voice recognition system. The report was reviewed for accuracy; however, sound-alike word errors, addition and/or deletions may occur. If there is any question about this report, please contact Client Services. PERFORMING LABORATORY: The technical component was performed by [facility], [address] [place] [id number] (CLIA# [id number]). The professional interpretation was performed by [facility], [facility], [facility] [address] [address] (CLIA#: [id number]). Diagnostician: Tyrone Rdz MD Pathologist Electronically Signed 12/02/2021 Copies: ~ PATIENT NAME: LUIS SANCHEZ PATHOLOGY DATE OF : 44 REPORT #: [id number] PHYSICIAN: MANOJ MCCRARY PCP: VAIBHAV VARAGS MD REPORT IS CONFIDENTIAL AND NOT TO BE RELEASED WITHOUT AUTHORIZATION
== END 2021-11-28 09:05 | disposition home or self-care (01) ==
LOC: OPS 06:00 → DS 06:00 → OPS 06:45
PROVIDERS: ATTEND Colon & Rectal Surgery
PROC: 0DBF8ZX Excision of Right Large Intestine, Via Natural or Artificial Opening Endoscopic, Diagnostic (ICD-10-PCS; 2021-11-28)
PROC: 0DBF8ZX Excision of Right Large Intestine, Via Natural or Artificial Opening Endoscopic, Diagnostic (ICD-10-PCS; principal; 2021-11-28 06:45)
DX: Z12.11 Encounter for screening for malignant neoplasm of colon (principal); D12.6 Benign neoplasm of colon, unspecified; K57.30 Diverticulosis of large intestine without perforation or abscess without bleeding; K64.4 Residual hemorrhoidal skin tags; K63.89 Other specified diseases of intestine; E11.9 Type 2 diabetes mellitus without complications; I13.0 Hypertensive heart and chronic kidney disease with heart failure and stage 1 through stage 4 chronic kidney disease, or unspecified chronic kidney disease; I50.30 Unspecified diastolic (congestive) heart failure; N18.30 Chronic kidney disease, stage 3 unspecified; E11.22 Type 2 diabetes mellitus with diabetic chronic kidney disease; E78.5 Hyperlipidemia, unspecified; I48.20 Chronic atrial fibrillation, unspecified; E66.9 Obesity, unspecified; Z79.01 Long term (current) use of anticoagulants; Z79.4 Long term (current) use of insulin; Z86.010 Personal history of colon polyps; Z88.8 Allergy status to other drugs, medicaments and biological substances; Z68.35 Body mass index [BMI] 35.0-35.9, adult
CPT/HCPCS: J2001; J2704; J7121